=== PATIENT | male | born 1990 | race Caucasian/White ===

== ENCOUNTER 2018-10-30 20:04 | Emergency (ER) | payer OTHER ==
[~2018-10-30] VITALS: Ht 165.1 cm; Wt 68.2 kg
[2018-10-30] MEDS ORDERED: CELE100C PO (20:12)
[2018-10-30] MEDS ORDERED: ZANA4CAP PO (20:12)
[2018-10-30] MEDS ORDERED: TOPA100T12 PO (20:12)
[2018-10-30] MEDS ORDERED: ONDANSETRON 4 MG ORAL DISINTEGRATING TAB (Q0162 PER 1MG) PO ONE (22:45)
[2018-10-30] MEDS ORDERED: IBUPROFEN 600 MG TAB PO ONE (22:45)
[2018-10-30] MEDS ORDERED: IBUP-1022 PO (23:07)
[2018-10-30] MEDS ORDERED: ZOFR4TAB16 PO (23:07)
[2018-10-30 23:08] LABS: INFLUENZA A AMPLIFICATION POSITIVE (NEGATIVE); INFLUENZA B AMPLIFICATION NEGATIVE (NEGATIVE)
[2018-10-30 23:17] VITALS: BP 142/63
== END 2018-10-30 23:18 | disposition home or self-care (01) ==
LOC: M ED 20:04
DX: K52.9 Noninfective gastroenteritis and colitis, unspecified (principal); G89.29 Other chronic pain; Z20.89 Contact with and (suspected) exposure to other communicable diseases; Z79.899 Other long term (current) drug therapy
CPT/HCPCS: 87502; 99283; Q0162